=== PATIENT | female | born 1960 | race Caucasian/White ===

== ENCOUNTER 2018-10-04 12:02 | Emergency (ER) | payer MEDICARE, OTHER ==
[~2018-10-04] VITALS: Ht 167.6 cm; Wt 51.7 kg
[~2018-10-04 12:02] MED LIST: KLONOPIN0.5 MG PO; MACROBID 100 M100 MG PO
[2018-10-04] MEDS ORDERED: ALBUTEROL SULF 0.083% NEB SOLN 3 ML NEB NEB STA (12:08)
[2018-10-04] MEDS ORDERED: ACETAMINOPHEN 325 MG TAB PO ONE (12:08)
[2018-10-04] MEDS ORDERED: IPRATROPIUM BROMIDE 0.02% 2.5 ML NEB NEB STA (12:08)
[2018-10-04] MEDS ORDERED: CEFEPIME HCL 2 GM VIAL IV ONE (12:15)
[2018-10-04] MEDS ORDERED: ONDANSETRON HCL INJ 2MG/ML 2ML 2 MG/ML VIAL IV PRN (12:15)
[2018-10-04] MEDS ORDERED: CEFEPIME 2 GM/NS 0.9% 100 ML 100 ML IV ONE (12:15)
--- NOTE | 2018-10-04 12:44 | NUR ---
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 NO SIGNS OF ACUTE DISTRESS NOTED DURING AT THIS TIME. BED LOW,LOSKED AND BILATERAL SIDERAILS UP. DENIES ANY C/O AT THIS TIME.
--- NOTE | 2018-10-04 12:47 | NUR ---
NOTIFIED RESPIRATORY FOR ORDERED NEB TREATMENTS.
[2018-10-04 12:48] LABS: BASOPHILS % 0.3 % (0.0-1.0); EOSINOPHILS # (AUTO) 0.2 (0.0-0.4); EOSINOPHILS % 1.9 % (0.0-6.0); HEMATOCRIT 40.9 % (34.2-44.1); HEMOGLOBIN 13.7 g/dL (12.0-16.0); LYMPHOCYTES # (AUTO) 1.9 (1.0-3.2); LYMPHOCYTES % 17.2 % (18.0-39.1); MEAN CORPUSCULAR HEMOGLOBIN 30.6 pg (28-32); MEAN CORPUSCULAR HGB CONC 33.5 g/dL (31-35); MEAN CORPUSCULAR VOLUME 91.3 fL (81-99); MONOCYTES # (AUTO) 0.7 (0.2-0.8); MONOCYTES % 6.5 % (4.4-11.3); NEUTROPHILS % 73.6 % (38.7-80.0); PLATELET COUNT 278 x10e3/uL (140-360); RED BLOOD COUNT 4.48 x10e6/uL (3.6-5.1); RED CELL DISTRIBUTION WIDTH 12.9 % (11.7-14.4)
--- NOTE | 2018-10-04 13:13 | NUR ---
RECEIVED REPORT FROM JOSE DURAND; ASSUMED CARE AT THIS TIME, PT IN STETCHER AWAKE AND ALERT, BREATHING EVEN/UNLABORED, NON-DIAPHORETIC, NAD NOTED.
[2018-10-04 13:15] LABS: ALANINE AMINOTRANSFERASE 21 IU/L (0-55); ALBUMIN/GLOBULIN RATIO 0.8 (0.8-2.0); ALKALINE PHOSPHATASE 213 IU/L (40-150); ANION GAP 13.3 mmol/L (8-16); BLOOD UREA NITROGEN < 5 mg/dL (7-26); BUN/CREATININE RATIO 6 (6-25); CALCIUM 9.5 mg/dL (8.4-10.2); CARBON DIOXIDE 32 mmol/L (22-29); CHLORIDE 97 mmol/L (98-107); CREATINE KINASE 73 IU/L (29-168); EST GLOMERULAR FILTRATION RATE > 60 ML/MIN (60-); GLUCOSE 91 mg/dL (74-118); POTASSIUM 3.3 mmol/L (3.5-5.1); SODIUM 139 mmol/L (136-145)
--- NOTE | 2018-10-04 13:49 | Diagnostic Imaging Report ---
Chest, 2 views, 10/04/2018. History: Cough and shortness of breath. Comparison: None available. Findings: The cardiomediastinal silhouette and pulmonary vasculature are within normal limits. The lungs are clear without evidence of consolidation or pleural effusion. There are no acute osseous or soft tissue abnormalities. Impression: No acute cardiopulmonary abnormality. Signed by: Alex Centeno on 10/04/2018 1:46 PM
[2018-10-04] MEDS ORDERED: LEVAQUIN500 MG PO (14:44)
[2018-10-04] MEDS ORDERED: SODIUM CHLORIDE 0.9% 1000ML 1,000 ML IV SCH (15:45)
[2018-10-04] MEDS ORDERED: ALBUTEROL/IPRATROPIUM 3 ML NEB NEB ONE (15:45)
[2018-10-04 16:19] VITALS: BP 147/75
== END 2018-10-04 16:15 | disposition home or self-care (01) ==
LOC: ER 12:02
DX: R06.00 Dyspnea, unspecified (principal); R05 Cough; J04.0 Acute laryngitis; I10 Essential (primary) hypertension; M54.9 Dorsalgia, unspecified; G89.29 Other chronic pain
CPT/HCPCS: 36415; 71046; 80053; 82550; 82553; 83605; 83880; 84484; 85025; 87040; 87400; 93005; 94640 ×2; 99284; J7030